=== PATIENT | male | born 1960 | race African-American/Black ===

== ENCOUNTER 2021-06-03 19:41 | Emergency (ER) | payer OTHER ==
[~2021-06-03] VITALS: Ht 190.5 cm; Wt 90.0 kg
[~2021-06-03 19:41] MED LIST: AMLODIPINE5 MG PO; ASPIRIN EC81 MG PO; DIAZEPAM5 MG PO; LOSARTAN POT50 MG PO; METOPROL TAR50 MG PO; NEURONTIN300 MG PO; OXYCOD/APAP1 TA4 PO; TAM75CAP OR; VITAMIN D35000 UNIT PO; ZOCOR20 M1 PO; ZOCOR20 MG PO
[2021-06-03] MEDS ORDERED: METHYLPRED4 MG PO (20:02)
[2021-06-03] MEDS ORDERED: LIPITOR10 M1 PO (20:03)
[2021-06-03] MEDS ORDERED: CLINDAMYCIN HC150 MG PO (20:03)
[2021-06-03] MEDS ORDERED: CHLORTHALIDONE25 MG PO (20:04)
[2021-06-03 20:12] LABS: HEMATOCRIT 42.5 % (39.0-50.0); HEMOGLOBIN 13.5 g/dl (14.0-18.0); IMMATURE GRANULOCYTES 0.4 % (0.0-5.0); MEAN CELL VOLUME 88.4 fL CALC (80.0-100.0); MEAN CORPUSCULAR HGB 28.1 pG CALC (26.0-32.0); MEAN CORPUSCULAR HGB CONC 31.8 g/dL CAL (32.0-36.0); NEUT# 7.86 thou/uL (1.82-7.42); RED BLOOD COUNT 4.81 mill/uL (4.70-6.10); RED CELL DISTRI WIDTH 12.8 % (11.5-15.5)
[2021-06-03 20:23] LABS: ALBUMIN 4.5 g/dL (3.2-5.0); ALKALINE PHOSPHATASE 81 u/l (38-126); ANION GAP 13 (6-22 (CALC)); BILIRUBIN, TOTAL 0.4 mg/dL (0.0-1.4); BUN 19 mg/dL (9-20); BUN/CREATININE RATIO 14 (12-20 (CALC)); CARBON DIOXIDE 33 mmol/l (22-30); CHLORIDE 96 mmol/l (95-108); CREATININE 1.4 mg/dL (0.7-1.3); GFR 52 ML/MIN (>=60 (CALC)); GFR FOR AFR.AMER. > 60 ML/MIN (>=60 (CALC)); SGOT/AST 37 u/l (17-59); SODIUM 139 mmol/l (137-146); TOTAL PROTEIN 8.1 g/dL (6.3-8.2)
[2021-06-03 20:24] LABS: POTASSIUM 2.9 mmol/l (3.5-5.1)
[2021-06-03 20:28] LABS: AMYLASE 131 u/l (30-110); LIPASE 101 u/l (23-300)
[2021-06-03 20:34] LABS: MYOGLOBIN 61 ng/mL (0 - 121)
[2021-06-03 22:12] LABS: URINE BILIRUBIN - DIPSTICK NEGATIVE (NEGATIVE); URINE BLOOD DIPSTICK TRACE-INTACT (NEGATIVE); URINE COLOR YELLOW; URINE GLUCOSE - DIPSTICK NEGATIVE (NEGATIVE); URINE KETONE NEGATIVE (NEGATIVE); URINE LEUK ESTERASE NEGATIVE (NEGATIVE); URINE PROTEIN - DIPSTICK NEGATIVE (NEG-TRACE)
[2021-06-03 22:13] LABS: URINE NITRITE - DIPSTICK NEGATIVE (Negative)
[2021-06-03] MEDS ORDERED: FIORICET PO (22:43)
[2021-06-03] MEDS ORDERED: FLOXIN OTIC0.3 % AD (22:43)
[2021-06-03 23:00] VITALS: BP 142/62
== END 2021-06-03 23:22 | disposition home or self-care (01) | DRG 204 ==
LOC: ED 19:41
PROVIDERS: Emergency Medicine
DX: R06.6 Hiccough (principal); R51.9 Headache, unspecified; E87.6 Hypokalemia; H66.91 Otitis media, unspecified, right ear; I10 Essential (primary) hypertension; J45.909 Unspecified asthma, uncomplicated; Z20.822 Contact with and (suspected) exposure to COVID-19

== ENCOUNTER 2021-07-15 06:57 | Day surgery (SDC) | payer OTHER ==
[~2021-07-15] VITALS: Ht 190.5 cm; Wt 87.1 kg
[~2021-07-15 06:57] MED LIST changes: +AMLODIPINE BESY10 MG PO; +CHLORTHALIDONE25 MG PO; +CLINDAMYCIN HC150 MG PO; +FIORICET PO; +FLOXIN OTIC0.3 % AD; +LIPITOR10 M1 PO; +METHYLPRED4 MG PO; +NORVASC2.5 M1 PO; +POTASSIUM99 MG PO; +VITAMIN D2000 UNI1 PO
[2021-07-15 09:08] VITALS: BP 147/79
[2021-07-18] MEDS ORDERED: LEVAQUIN250 MG PO (14:06)
[2021-07-18] MEDS ORDERED: OMEPRAZOLE20 MG PO (14:06)
[2021-07-19] MEDS ORDERED: OMEPRAZOLE20 MG PO (10:20)
== END 2021-07-15 09:23 | disposition home or self-care (01) | DRG 392 ==
LOC: ENDO 06:57 → ORM 08:45 → ENDO 09:23
PROVIDERS: ATTEND Surgery
PROC: 0DB78ZX Excision of Stomach, Pylorus, Via Natural or Artificial Opening Endoscopic, Diagnostic (ICD-10-PCS; principal; 2021-07-15)
PROC: 0DJD8ZZ Inspection of Lower Intestinal Tract, Via Natural or Artificial Opening Endoscopic (ICD-10-PCS; 2021-07-15)
DX: K29.40 Chronic atrophic gastritis without bleeding (principal); K31.A11 Gastric intestinal metaplasia without dysplasia, involving the antrum; K57.30 Diverticulosis of large intestine without perforation or abscess without bleeding; K64.8 Other hemorrhoids; I10 Essential (primary) hypertension; Z86.16 Personal history of COVID-19

== ENCOUNTER 2022-04-03 09:08 | Day surgery (SDC) | payer OTHER ==
[~2022-04-03] VITALS: Ht 190.5 cm; Wt 83.9 kg
[~2022-04-03 09:08] MED LIST changes: +LEVAQUIN250 MG PO; +OMEPRAZOLE20 MG PO
[2022-04-03 11:57] VITALS: BP 131/67
== END 2022-04-03 12:11 | disposition home or self-care (01) | DRG 392 ==
LOC: ENDO 09:08 → ORM 13:00 → ENDO 13:50 → ORM 13:50
PROVIDERS: ATTEND Internal Medicine Gastroenterology
PROC: 0DB38ZX Excision of Lower Esophagus, Via Natural or Artificial Opening Endoscopic, Diagnostic (ICD-10-PCS; principal; 2022-04-03)
PROC: 0DB78ZX Excision of Stomach, Pylorus, Via Natural or Artificial Opening Endoscopic, Diagnostic (ICD-10-PCS; 2022-04-03)
PROC: 0DB28ZX Excision of Middle Esophagus, Via Natural or Artificial Opening Endoscopic, Diagnostic (ICD-10-PCS; 2022-04-03)
DX: K29.50 Unspecified chronic gastritis without bleeding (principal); K22.89 Other specified disease of esophagus; I12.9 Hypertensive chronic kidney disease with stage 1 through stage 4 chronic kidney disease, or unspecified chronic kidney disease; N18.30 Chronic kidney disease, stage 3 unspecified; E78.5 Hyperlipidemia, unspecified; E03.9 Hypothyroidism, unspecified